=== PATIENT | male | born 1935 | race Caucasian/White ===

== ENCOUNTER 2018-01-04 07:51 | Inpatient (IN) ==
--- OUTSIDE RECORDS SUMMARY | 2018-01-04 07:57 | External Medical Summary ---
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 obstruction or gangrene Problem Major depressive disorder, single F32.9 Active episode, unspecified Problem Dupuytrens contracture M72.0 Active Problem Mixed hyperlipidemia E78.2 Active Problem Gross hematuria R31.0 Active Problem 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 Problem Old myocardial infarction I25.2 Active Problem Type 2 diabetes mellitus without E11.9 Active complications Problem Essential (primary) hypertension I10 Active Problem Complete rotator cuff tear or M75.120 Active rupture of unspecified shoulder, not specified as traumatic Problem 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 externally to February 01, use Blue test blood sugars 2014 2 time daily for uncontrolled blood sugars (dx E11.9) Results No Known Results Summary Purpose eClinicalWorks Submission
[2018-01-04 08:21] VITALS: BMI 28.7
[2018-01-04] MEDS ORDERED: SALINE FLUSH 10ml SYRINGE IV PRN (08:34)
[2018-01-04] MEDS: NS 1,000 ML IV SCH ×2 (08:35→19:16)
[2018-01-04] MEDS ORDERED: HEPARIN 1,000 UNITS/500 ML PREMIX (*CVL ONLY*) IV ONE (09:18)
[2018-01-04] MEDS ORDERED: LIDOCAINE 1% (10mg/ml) 30ml SDV INJ ONE (09:18)
[2018-01-04] MEDS ORDERED: IOHEXOL 350mg/ml 200ml BOTTLE ONE ×2 (09:25→11:10)
[2018-01-04] MEDS ORDERED: FentaNYL 100 MCG/2 ML INJECTION ONE (10:36)
[2018-01-04] MEDS ORDERED: MIDAZOLAM 2mg/2ml INJECTION ONE (10:37)
[2018-01-04] MEDS ORDERED: NITROGLYCERIN 50MG INJECTION IV ONE (10:37)
[2018-01-04] MEDS ORDERED: HEPARIN 1,000unit/ml INJECTION 10ml ONE (10:37)
[2018-01-04] MEDS ORDERED: Verapamil 5 MG/2 ML VIAL ONE (10:37)
[2018-01-04] MEDS ORDERED: SALINE FLUSH 10ml SYRINGE ONE (10:38)
[2018-01-04] MEDS ORDERED: CLOPIDOGREL 75 MG TABLET PO ONE (13:18)
[2018-01-04] MEDS ORDERED: ACETAMINOPHEN 325 MG TABLET PO PRN (13:19)
[2018-01-04] MEDS ORDERED: HYDROCODONE/APAP 5mg/325mg TABLET PO PRN (13:19)
[2018-01-04] MEDS ORDERED: LORazepam 0.5 MG TABLET PO PRN (13:19)
[2018-01-04] MEDS ORDERED: ONDANSETRON 4 MG/2 ML INJECTION IVP PRN (13:19)
[2018-01-04] MEDS ORDERED: BISACODYL 10 MG SUPPOSITORY RECTALLY PRN (13:19)
[2018-01-04] MEDS ORDERED: Bisacodyl EC TAB 5 MG TABLET PO PRN (13:19)
[2018-01-04] MEDS ORDERED: METOCLOPRAMIDE 10mg/2ml INJECTION IVP PRN (13:19)
[2018-01-04] MEDS ORDERED: MORPHINE SULFATE 4mg INJECTION IVP PRN ×2 (13:19)
[2018-01-04] MEDS ORDERED: PROMETHAZINE 25 MG INJECTION IVP PRN (13:19)
[2018-01-04] MEDS ORDERED: NITROGLYCERIN 0.4 MG SUBLINGUAL TABLET SL PRN (13:19)
[2018-01-04] MEDS ORDERED: MAG-AL + SIM ORAL LIQUID 30ml PO PRN (13:19)
[2018-01-04] MEDS ORDERED: ATROPINE 1 MG/ML INJECTION IVP PRN (13:19)
[2018-01-05] MEDS: NS 1,000 ML IV SCH ×3 (00:55→12:51)
[2018-01-05] MEDS: GLIPIZIDE 10 MG PO SCH (08:04)
[2018-01-05] MEDS ORDERED: LIDOCAINE 1% (10mg/ml) 30ml SDV INJ ONE (08:17)
[2018-01-05] MEDS ORDERED: IOHEXOL 350mg/ml 200ml BOTTLE ONE (08:17)
[2018-01-05] MEDS ORDERED: HEPARIN 1,000 UNITS/500 ML PREMIX (*CVL ONLY*) IV ONE (08:17)
[2018-01-05] MEDS: --POM--ASPIRIN *EC* 81 MG TABLET PO SCH (08:48)
[2018-01-05] MEDS: CLOPIDOGREL 75 MG TABLET PO SCH (08:48)
[2018-01-05] MEDS: --POM--CITALOPRAM 20 MG TABLET PO SCH (08:49)
[2018-01-05] MEDS: SIMVASTATIN 10 MG PO SCH (08:50)
[2018-01-05] MEDS: --POM--OMEPRAZOLE 20 MG CAPSULE PO SCH (08:50)
[2018-01-05] MEDS ORDERED: FALL RISK - PHARMACY CONSULT XX ONE (09:11)
[2018-01-05] MEDS ORDERED: MIDAZOLAM 2mg/2ml INJECTION ONE (10:43)
[2018-01-05] MEDS ORDERED: NITROGLYCERIN 50MG INJECTION IV ONE (10:43)
[2018-01-05] MEDS ORDERED: FentaNYL 100 MCG/2 ML INJECTION ONE (10:43)
[2018-01-05] MEDS ORDERED: HEPARIN 1,000unit/ml INJECTION 10ml ONE (10:44)
--- NOTE | 2018-01-05 12:53 | Cardiology Report ---
DATE OF PROCEDURE 01/05/2018 TYPE OF PROCEDURE 1. PTCA and stent placement of the proximal circumflex artery. 2. Conscious sedation for 30 minutes. MEDICATIONS GIVEN DURING THE PROCEDURE Please refer to the accompanying sheet. COMPLICATIONS None. METHOD The patient was brought to the cardiac catheterization laboratory. The right groin was prepped and draped in routine sterile procedure. 1% Xylocaine was used for local anesthesia. A 6-[place]oven[place] sheath was inserted into the right femoral artery. A 6-[place] EBU guide catheter was inserted into the left main coronary artery. A Whisper wire was advanced to the mid circumflex artery and 2.5 x 10-mm balloon was advanced. Next, a 3.2 x 8-mm drug-eluting stent ([place]) was deployed up to 14 atmospheres. Additional views were obtained. Angiography was performed of the right femoral artery and Angio-Seal device was deployed successfully. RESULTS PTCA and stent placement successful, reducing stenosis from 99% to 0% with MATT 3 flow following the procedure. SUMMARY Successful PTCA and stent placement of the proximal circumflex artery, reducing stenosis from 99% down to 0% with MATT 3 flow following the procedure. Length of the lesion was about 4 mm. MTDD
[2018-01-05] MEDS: D5NS 1,000 ML IV SCH ×2 (16:51→23:50)
--- NOTE | 2018-01-05 18:17 | Cardiology Progress Note ---
Subjective Interval history: Anselmo is seen post PCI today >he s feeling well. has no c/o groin pain abd or back pain. no cp or dyspnea. His brother commented ,this is a higher BP than he has seen for his brother ,for a number of yrs. no c/o related to L wrist and R groin. no swelling hand or leg pain or weakness. urinated this morning multiple times.had multiple small nl BM's yesterday. good appetite today. BG ok tele AV paced. I/O wt ,and lab/XR reviewed. Exam Vital signs: Temperature 97.5 F 01/05/18 12:01 Pulse Rate 69 01/05/18 16:57 Respiratory Rate 13 01/05/18 15:36 Blood Pressure 129/72 01/05/18 15:36 Pulse Oximetry 97 01/05/18 15:36 - Constitutional no acute distress - Routine HEENT Exam Head: Present: normocephalic, atraumatic Eye: Present: EOMI, PERRL ENT: Present: mucous membranes moist - Routine Neck Exam Present: normal carotid upstroke. Absent: JVD, carotid bruit, lymphadenopathy, thyromegaly - Routine Chest/Breast/Axilla Exam Chest wall: Present: pacemaker (ICD scar is normal) - Routine Respiratory Exam Present: CTA bilaterally - Routine Cardiovascular Exam Present: RRR - Routine Abdominal Exam Present: soft, normoactive bowel sounds, non distended, non tender. Absent: organomegaly - Routine Exam Patient deferred: groin exam (NL R groin, soft.) - Routine Extremities Exam Present: no edema, pulses intact, normal capillary refill. Absent: cyanosis, clubbing - Routine Skin Exam Present: intact, wounds (L wrist and R groin dry w/o swelling or hematoma. NL neurovasc. exam.pink warm digits w/ NL cap. RF.). Absent: ecchymosis - Routine Neurological Exam Present: alert, oriented X3, CN II-XII intact, moving all extremities, vision grossly intact, hearing grossly intact, normal speech. Absent: motor deficit, facial asymmetry - Routine Psychiatric Exam Present: normal affect (somewhat flat ,NL for pt.), normal thought process ( somewhat slow, at baseline for pt.), cooperative, good insight, good judgment, depressed (baseline). Absent: anxious Results 01/05/18 04:22 01/05/18 04:22 Lipids 01/05/18 Range/Units 04:22 Triglycerides 108 (40-160) MG/DL Cholesterol 117 L (132-199) MG/DL HDL Cholesterol 47 (40-60) MG/DL Cholesterol/HDL Ratio 2.5 (0-5.0) RATIO CBC 01/05/18 Range/Units 04:22 WBC 3.9 L (4.5-11.0) T/MM3 RBC 4.05 L (4.50-5.90) M/MM3 Hgb 13.3 L (13.5-17.5) GM/DL Hct 40.6 L (41-53) % Plt Count 110 L (130-400) T/MM3 Neut # (Auto) 2.0 (1.8-7.7) T/MM3 Lymph # (Auto) 1.2 (1-4.8) T/MM3 [place] # (Auto) 0.5 (0-0.8) T/MM3 Eos # (Auto) 0.2 (0-0.5) T/MM3 Baso # (Auto) 0.0 (0-0.2) T/MM3 Comprehensive Metabolic Panel 01/05/18 Range/Units 04:22 Sodium 142 (134-144) MEQ/L Potassium 4.2 (3.6-5) MEQ/L Chloride 108 H (98-107) MEQ/L Carbon Dioxide 26 (22-30) MEQ/L BUN 20.0 (9-20) MG/DL Creatinine 0.9 (0.8-1.5) MG/DL Glucose 118 H (75-110) MG/DL Calcium 8.8 (8.4-10.2) MG/DL Intake and Output 01/05/18 01/05/18 01/05/18 06:59 14:59 22:59 Intake Total 100 / 100 1000 / 1000 871.25 / 871.25 Output Total 350 / 350 Balance 100 / 100 1000 / 1000 521.25 / 521.25 Intake: IV 1000 / 1000 511.25 / 511.25 Ns 1,000 ml @ 75 mls/hr IV . 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 It improved after IV hydration. see cath report (LVEDP). Hospital Course Summary Disclaimer: The visit summary below is not to be considered part of the above Progress Note.
[2018-01-06] MEDS: GLIPIZIDE 10 MG PO SCH (08:38)
[2018-01-06] MEDS: --POM--ASPIRIN *EC* 81 MG TABLET PO SCH (08:41)
[2018-01-06] MEDS: --POM--CITALOPRAM 20 MG TABLET PO SCH (08:42)
[2018-01-06] MEDS: --POM--OMEPRAZOLE 20 MG CAPSULE PO SCH (08:43)
[2018-01-06] MEDS: SIMVASTATIN 10 MG PO SCH (08:44)
[2018-01-06] MEDS: CLOPIDOGREL 75 MG TABLET PO SCH (08:45)
[2018-01-06] MEDS ORDERED: NON-FORMULARY MEDICATION 1 EACH EACH (Glipizide [Glipizide] 10 MG) PO SCH (09:00)
[2018-01-06 12:04] VITALS: BP 110/64; PULSE 74; RESP 16; TEMP 97.3; O2SAT 97
--- NOTE | 2018-01-06 17:21 | Cardiology Progress Note ---
Subjective Interval history: Anselmo is seen post PCI and will be discharged today. He has no complaints and says he is doing well. He says he has a good appetite and has walked down the hallway. He denied chest pain, palpitations or dyspnea upon exertion or at rest. Both access sites of left wrist and right groin have no swelling, hematoma , drainage or pain. He has been able to urinate with no complaints and having normal BM's. Tele AV paced. BG 217 2 hr PP. Exam Vital signs: Temperature 97.3 F 01/06/18 12:00 Pulse Rate 74 01/06/18 12:00 Respiratory Rate 16 01/06/18 12:00 Blood Pressure 110/64 01/06/18 12:00 Pulse Oximetry 97 01/06/18 12:00 - Constitutional no acute distress, well developed, cooperative - Routine HEENT Exam Head: Present: normocephalic, atraumatic Eye: Present: EOMI, PERRL ENT: Present: mucous membranes moist - Routine Neck Exam Present: supple. Absent: carotid bruit - Routine Respiratory Exam Present: CTA bilaterally - Routine Cardiovascular Exam Present: RRR, no murmur. Absent: gallop, rubs - Routine Abdominal Exam Present: soft, normoactive bowel sounds, non tender. Absent: rebound, organomegaly, mass - Routine Extremities Exam Present: edema (bilateral trace ankle), pulses intact, normal capillary refill. Absent: cyanosis, clubbing - Routine Skin Exam Present: intact. Absent: cyanosis - Routine Neurological Exam Present: alert, oriented X3, CN II-XII intact, hearing grossly intact, normal speech - Routine Psychiatric Exam Present: normal affect, cooperative Results 01/05/18 04:22 01/05/18 04:22 Intake and Output 01/06/18 01/06/18 01/06/18 06:59 14:59 22:59 Intake Total 500 / 500 260 / 260 Balance 500 / 500 260 / 260 Intake: IV 500 / 500 D5ns 1,000 ml @ 75 mls/hr IV . 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 It has required us to d/c lisinopril and Farxiga. It improved after IV hydration. see cath report (LVEDP). Hospital Course Summary Disclaimer: The visit summary below is not to be considered part of the above Progress Note.
--- NOTE | 2018-01-06 18:59 | Cardiac Catheterization Report ---
DATE: 01/04/2018 PROCEDURE PERFORMED 1. Transradial left heart catheterization, LV gram, coronary angiogram, saphenous vein graft injection, GOODSON arteriogram. 2. Moderate conscious sedation given by independent staff, time approximately 53 minutes. INDICATIONS This is a complex 82-year-old male with complex cardiovascular disease with previous history of silent inferior AR, ischemic cardiomyopathy - status post CABG x 3 in 2009, status post dual chamber ICD implant subsequently upgrade to a BiV ICD implant. The patient has angina but originally had atypical presentation prior to his CABG. He presented with gradual worsening in his functional capacity. His LVEF was more depressed. He had no angina or worsening of his heart failure. He underwent noninvasive cardiac stress nuclear scan in October 2017 that showed multiple fixed perfusion defects. He has no reversible ischemia. He had severe LV systolic dysfunction again with worsening ejection fraction from before. He is also diabetic and has mild dementia but he remains functional at home. He had an episode of ventricular fibrillation that broke following a burst of antitachycardia-based pacing of his defibrillator while he was charging, getting ready to deliver a shock. Now with the presence of atrial fibrillation I discussed with the patient and his brother the role of heart catheterization to look for revascularization opportunities. Also, given his worsening left ventricular systolic dysfunction, especially with prior history of silent ischemia, silent AR and being diabetic, the patient and brother opted for heart catheterization. They understood the indications, alternatives, risks and benefits of the procedure and agreed to proceed. They wanted the procedure done locally at [facility]. NARRATIVE OF PROCEDURE The patient was brought to the cardiac cath laboratory and received IV sedation , Versed and Fentanyl. Please refer to nursing notes for exact amount given. I went ahead and injected lidocaine 1%, about 2 mL, in the left wrist and accessed the left radial artery using modified Seldinger percutaneous technique without difficulty. A 6-[place] Slender sheath was introduced in place. The side arm was aspirated and flushed. I injected interatrial drug combo including 3000 units of heparin, 300 units of nitroglycerin and 2.5 mg verapamil. I used a table wire with a GOODSON catheter, then changed to a Gil catheter and performed the above-mentioned procedures. The procedure was tolerated with no immediate complications. I used about 220 mL of contrast so decided to deploy TR band for hemostasis and not proceed with PCI on the spot. I reviewed with intervention colleague, Dr. Mike Edwards, who is planning a transfemoral PCI to the LCX after I reviewed with him the clinical, nuclear and coronary angiogram data. COMPLICATIONS None. FINDINGS 1. HEMODYNAMICS: LVEDP was normal at 8 mmHg. There was no transvalvular or subvalvular pressure gradient present. LV gram shows inferior wall akinesis. Severe left ventricular systolic dysfunction is present. 2. CORONARY ANGIOGRAM: Coronaries exhibit proximal calcification. Left main coronary artery has mild nonocclusive plaquing. LAD exhibits a significant *___ * noted in the mid segment, about 70%-80%. Diagonal branch has mild plaquing proximally. Distally gives two secondary branches - they are both totally occluded. This is preceded by diffuse small vessel disease leading into the total occlusion. The left circumflex artery gives origin to a high obtuse marginal branch that exhibits an ostial stenosis of 80%. Competitive flow in this branch is noted. Competitive flow is also seen in the LAD. There is a proximal subtotal occlusion, 5%, in the left circumflex artery. It is after the first obtuse marginal branch. This gives origin to two obtuse marginal branches including OM2 and PLB branch. The former exhibits minor plaquing. The latter exhibits severe diffuse stenosis, 90%-95%, in multiple areas in a diffuse manner. The size of OM2 is about 1.5 mm. The size of the proximal circumflex is about 2.5 mm. The PLB branch (OM3) is quite small with severe diffuse disease. The right coronary artery is a large dominant vessel that exhibits a total occlusion in the mid segment. It has multiple areas of significant stenosis including the ostium vessel. The saphenous vein graft to the high obtuse marginal branch is widely patent and exhibits antegrade good flow to the high OM branch (OM1) which is about 1 mm in caliber, relatively preserved. This bypass does not provide much flow to the rest of the left circumflex artery due to the proximal occlusion. The saphenous vein graft to the distal RCA is widely patent. The runoff vessels include RPDA and RPLB branch. The anastomosis looks good. The vein graft itself exhibits only scattered minor plaquing, nothing occlusive. There is some significant stenosis noted in the PLB branch and some diffuse disease in the RPDA. GOODSON graft is widely patent with a good anastomosis to the mid LAD supplying a tiny diagonal branch. Anastomosis looks good. Runoff vessel is small and exhibits distal tapering. The GOODSON graft gives a branch that supplies the chest wall and perhaps stealing some blood from the myocardium. The caliber of the branch is just slightly smaller than the GOODSON graft itself. There is still good antegrade flow to the LAD. LV gram shows inferior wall hypokinesis to akinesis. Anterolateral wall contracts reasonably well. Findings of significant cardiomyopathy. Accurate ejection fraction cannot be given. IMPRESSION 1. Severe three-vessel coronary artery disease as manifested by mid LAD 80% stenosis, high diagonal branch 80% ostial stenosis, proximal LCX 95% (just after the origin of the first OM branch), RCA 100% occlusion of its mid segment. 2. Patent bypasses x 3 including GOODSON to LAD, saphenous vein graft to first obtuse marginal branch and saphenous vein graft to the distal RCA and its branches. 3. Distal vessel disease as manifested by distal diffuse LAD stenosis, distal LCX (PLB branch/OM3 branch) and distal RCA (RPDA and RPLB branch as described above.). 4. Ischemic cardiomyopathy with significant LV systolic dysfunction. 5. LVEDP of 8 mmHg, low for a patient with cardiomyopathy. Tolerated a normal saline bolus and saline infusion well. As a matter of fact, subsequently resulted in much better blood pressure in the 130s/80s, much better than his blood pressure running as an outpatient. This may suggest the patient has a poor oral intake of fluids as an outpatient contributing if not predominantly causing his tendency for outpatient symptomatic at one point required me to take him off lisinopril. DISCUSSION/PLAN After review of the coronary angiogram I explained to the patient and his brother that PCI on the proximal LCX in order to supply primarily the second obtuse marginal branch territory may be a worthwhile revascularization although it is unclear if it would improve his LV function or reduce future risks for ventricular arrhythmia. Risks and benefits were discussed with them and they were in agreement. Dr. Mike Edwards is proceeding with transfemoral PCI 2017. JUAN FRANCISCO
== END 2018-01-06 17:20 | disposition home or self-care (01) | DRG 247 ==
LOC: CATH 07:51 → SRG 07:54
PROVIDERS: ADMIT Internal Medicine Cardiovascular Disease; ATTEND Internal Medicine Cardiovascular Disease